=== PATIENT | female | born 1965 | race African-American/Black ===

== ENCOUNTER 2017-05-06 16:17 | Emergency (ER) | payer OTHER ==
[~2017-05-06] VITALS: Ht 167.6 cm; Wt 65.0 kg
[~2017-05-06 16:17] MED LIST: ADVITAB3 PO; CALC600T25; CETI10CA3; MULTTAB67 PO; OMEG100010
[2017-05-06 16:21] VITALS: BP 108/60; PULSE 89; RESP 24; TEMP 97.6; O2SAT 95
[2017-05-06] MEDS ORDERED: ORPHENADRINE INJ 60 MG/2 ML AMP IM ONE (16:45)
[2017-05-06] MEDS ORDERED: KETOROLAC TROMETHAMINE 60 MG/2 ML (IM) VIAL IM ONE (16:45)
[2017-05-06] MEDS ORDERED: DEXAMETHASONE SOD PHOS 4 MG/ML VIAL IM ONE (16:45)
--- NOTE | 2017-05-06 16:51 | PD ---
HPI Chief Complaint: Back/ Neck Pain or Injury Time Seen by Provider: 16:24 Travel History International Travel<30 days: No Contact w/Intl Traveler<30days: No Traveled to known affect area: No History of Present Illness HPI 51-year-old female with history of chronic low back pain presents to the emergency department for evaluation of worsening low back pain. She has had issues with low back pain since approximately 2005. She saw Dr. Tovar in December of this year. She was referred to rehabilitation, physical therapy. However, she did not finish it due to issues with cost. She has not followed back up with him. Patient is taking Lortab and Soma as needed for pain that was prescribed to her back in December by her primary care physician. Patient reports laying on her side does help with the pain. She has taken 2 Lortabs and 2 Soma today without improvement. Patient does state that she was on prednisone in the past which did help. Otherwise, she states that nothing has helped her back pain. She denies no recent injury. No fevers or chills. No saddle anesthesias. No numbness or tingling. No loss of bowel or bladder control. She reports no other medical problems and takes no other prescribed medications. I was able to view Dr. Tovar's note from December. According to his note, she has severe L3 to 4 degenerative disc disease with disc protrusion and facet arthropathy with overall all moderate foraminal stenosis and mild spinal stenosis. If rehabilitation was not to work, he did instruct her to follow-up for possible surgical management. However, she did not complete rehabilitation and did not follow back up with him. FORMERLY [facility] Social History Alcohol Use: No Tobacco Use: No Substance Use: No Allergies-Medications (Allergen,Severity, Reaction): Coded Allergies: nifedipine (Unverified Allergy, Unknown, 05/06/17) Reported Meds & Prescriptions Reported Meds & Active Scripts Active Reported Naprosyn (Naproxen) 500 Mg Tab 500 Mg PO BID PRN Omeprazole 20 Mg Tab 20 Mg PO DAILY Soma (Carisoprodol) 350 Mg Tab 350 Mg PO TID PRN [place] 3 1000 mg ([place]-3 Fatty Acids) 1 Cap Cap Calcium (Calcium Carbonate) 600 Mg Tab Multiple Vitamin 1 Tab 1 Tab PO DAILY Zyrtec (Cetirizine HCl) 10 Mg Capsule Review of Systems Except as stated in HPI: all other systems reviewed are Neg Physical Exam Narrative GENERAL: Well-nourished, well-developed female patient, ambulatory. Afebrile. SKIN: Focused skin assessment warm/dry. HEAD: Normocephalic. Atraumatic. EYES: No scleral icterus. No injection or drainage. NECK: Supple, trachea midline. No JVD or lymphadenopathy. CARDIOVASCULAR: Regular rate and rhythm without murmurs, gallops, or rubs. RESPIRATORY: Breath sounds equal bilaterally. No accessory muscle use. Lungs sounds clear to auscultation. GASTROINTESTINAL: Abdomen soft, non-tender, nondistended. MUSCULOSKELETAL: No cyanosis, or edema. Bilateral upper and lower extremity strength 5/5. All extremities are neurovascularly intact. BACK: No obvious deformity. No CVA tenderness. Patient has tenderness over lower midline lumbar spine. Data Data Last Documented VS Vital Signs Date Time Temp Pulse Resp B/P (MAP) Pulse Ox O2 Delivery O2 Flow Rate FiO2 05/06/17 16:21 97.6 89 24 108/60 (76) 95 Room Air Orders Orders Ketorolac Inj (Toradol Inj) (05/06/17 16:45) Orphenadrine Inj (Norflex Inj) (05/06/17 16:45) Dexamethasone Inj (Decadron Inj) (05/06/17 16:45) MDM Medical Decision Making Medical Screen Exam Complete: Yes Emergency Medical Condition: Yes Medical Record Reviewed: Yes Differential Diagnosis Acute exacerbation of chronic back pain versus sciatica versus herniated disc Narrative Course 51-year-old female presents to the emergency department for evaluation of low back pain that is chronic in nature. She was supposed to do rehabilitation and follow up with Dr. Tovar, but has been able to do so. She has taken 2 Lortab and 2 Soma today without improvement. Patient is given Toradol 60 mg IM, Norflex 60 mg IM, dexamethasone 8 mg IM. Upon re-assessment, patient states pain is much better and more tolerable. She states it is not completely gone, but is tolerable at this time. Patient will be discharged home with a Medrol Dosepak. She is instructed to follow-up with Dr. Tovar. She will be given a few days off work. She is instructed to return here for any acute worsening of symptoms. She verbalizes agreement and understanding. The patient was discharged in stable condition with instructions, including return instructions and follow up instructions. Diagnosis Primary Impression: Lumbar degenerative disc disease Referrals: Walter Tovar MD 2 days Patient Instructions: Chronic Back Pain (ED), General Instructions Departure Forms: Tests/Procedures, Work Release Enter return to work date: May 10, 2017 Additional Instructions: Continue hydrocodone and Soma as prescribed by your primary care physician as needed for pain. Take Medrol Dosepak as directed. Start this tomorrow. Follow-up with Dr. Tovar. Return to the emergency department for any acute worsening of symptoms. Med/Other Pt SpecificInfo: Prescription(s) given Scripts Methylprednisolone Dosepak (Medrol Dosepak) 4 Mg Dspk 4 MG PO DIRECTED, #1 DSPK 0 Refills Per Pharmacist direction Prov: Brandie Mayes 05/06/17 Disposition: 01 DISCHARGE HOME Condition: Stable Brandie Mayes May 06, 2017 16:51
[2017-05-06] MEDS ORDERED: SOMA350T PO (17:03)
[2017-05-06] MEDS ORDERED: NAPR500 PO (17:03)
[2017-05-06] MEDS ORDERED: OMEP20TA PO (17:03)
[2017-05-06] MEDS ORDERED: MEDR4PAK PO (18:17)
[2017-05-16] MEDS ORDERED: HYDR-3533 PO (14:59)
[2017-05-16] MEDS ORDERED: SOMA350T PO (14:59)
== END 2017-05-06 18:45 | disposition home or self-care (01) ==
LOC: NEPD 16:17
DX: M51.36 Other intervertebral disc degeneration, lumbar region (principal); Z79.899 Other long term (current) drug therapy; Z88.8 Allergy status to other drugs, medicaments and biological substances
CPT/HCPCS: 96372; 99284; J1100; J1885; J2360

== ENCOUNTER → 2017-08-07 | Outpatient (CLI) | payer OTHER ==
[~2017-08-07] MED LIST changes: -ADVITAB3 PO; -CALC600T25; +CALC600T5; +IBUP200T47 PO; +NAPR500 PO; +NORC5TAB PO; +OMEP20TA93 PO; +SOMA350T PO; +WALKER WHEELS/F1 MIS
== END ==
LOC: CPRE 12:45
PROVIDERS: ATTEND Neurological Surgery
DX: Z01.812 Encounter for preprocedural laboratory examination (principal); M51.16 Intervertebral disc disorders with radiculopathy, lumbar region; M51.36 Other intervertebral disc degeneration, lumbar region
CPT/HCPCS: 87640; 87641

== ENCOUNTER 2017-08-09 06:02 | Inpatient (IN) | payer OTHER ==
--- NOTE | 2017-08-08 18:21 | MH ---
cc: TONY MONTEIRO M.D., ROHIT K. M.D. DATE OF ADMISSION 08/09/2017 ADMISSION DIAGNOSIS Lumbar degenerative disk disease. HISTORY OF PRESENT ILLNESS This is a 51-year-old female who presented to us initially in December 2016 for evaluation of low back pain. At that time she said she has had back problems since 2005 and has had periodic flare-ups that would last 1-2 days and then resolve. She states that on December 18, 2016 she had exacerbation of her back that extended across her low back and the exacerbation never improved as they had previously done. She also complained of numbness in the posterior right buttock and thigh and calf and into the big toe intermittently. She denied any weakness. She has no bowel or bladder incontinence. She denies any left leg symptoms. The patient has had such severe pain that at times she has had to go to Urgent Care or the emergency room. She has seen her primary care physician who was also tried prednisone and she could not tolerate the side effects. She states that lying down helps with her pain but she has pain all the time. Her back pain will sometimes extend into the right buttocks. She has had a lumbar epidural steroid injection in the past which did not help. She has also tried physical therapy in the past which has not helped. She has also been seen for follow-up evaluations on 05/16/2017 and 07/31/2017 and the patient states that she has tried conservative treatment route and she is miserable with her level of discomfort and she is requesting that we proceed with surgical intervention. She currently rates her back pain as 4/10. PAST MEDICAL HISTORY Significant for: 1. Hypertension. 2. Osteoarthritis. 3. Cataracts. PAST SURGICAL HISTORY 1. She had a in 1986. 2. Another in 2000. 3. Hysterectomy in 2002. 4. Adrenalectomy in 2012. CURRENT MEDICATIONS She takes: 1. Advil 400 milligrams p.r.n. This was placed on hold prior to surgical intervention. 2. Zyrtec 5 mg daily. 3. Multivitamin daily. 4. Calcium 600 mg daily. 5. [place] 3 fish oil daily. 6. Soma 350 mg p.r.n. 7. Hydrocodone 5/325 p.r.n. ALLERGIES SHE IS ALLERGIC TO PROCARDIA. FAMILY HISTORY Father is alive at 75 years old, has diabetes and a pacemaker. Her mother is at 43 years old of suicide. She has a sister who is alive 46 years old with lung problems. SOCIAL HISTORY She is an financial planning assistant. She is . She has four children. She does not smoke. She drinks alcohol on a rare occasion two to three drinks per year. REVIEW OF SYSTEMS CONSTITUTIONAL: She denies any fever or chills. EARS, NOSE, AND THROAT: No pharyngitis or exudate. Positive for sinus drainage. nose. CARDIOVASCULAR: No chest pain, palpitations. RESPIRATORY: No cough or shortness of breath. GENITOURINARY: No dysuria or hematuria. MUSCULOSKELETAL: Positive for low back pain and neck pain. NEUROLOGICAL: No difficulty with speech or memory. INTEGUMENT: No rashes or pruritus. NEUROLOGIC: No difficulty with speech or memory. GASTROINTESTINAL: No nausea or vomiting, abdominal pain. PSYCHIATRIC: Mild anxiety. No depression. ENDOCRINE: No polyuria. HEMATOLOGIC: No bruising or bleeding tendencies. PHYSICAL EXAMINATION HEAD: Normocephalic, atraumatic. NECK: Supple. No carotid bruits heard on auscultation. LUNGS: Clear to auscultation bilaterally. HEART: Regular rate and rhythm. Normal S1-S2. ABDOMEN: Soft and nontender. Positive bowel sounds. SKIN: Reveals no cyanosis or erythema. MUSCULOSKELETAL: She has 5/5 strength in the lower extremities. She ambulates without any assistive device. NEUROLOGIC: She is awake, alert, oriented. Cranial nerves II through XII appear grossly intact. Speech is fluent. Comprehension is good. Reflexes 2+ in the lower extremities: IMAGING Data reviewed, MRI of the lumbar spine reveals advanced L3 / L4 disk degeneration with disk height collapse along with extensive endplate changes and disk protrusion with facet hypertrophy and foraminal stenosis. PLAN We have discussed the treatment options with the patient and she is requesting that we proceed with surgical intervention. We have therefore recommended an L3-L4 transforaminal interbody fusion with cage and pedicle screw fixation. The procedure as well as the risks, benefits, alternative and recovery time were explained in great detail with the patient. We have discussed the risks involved with surgery to include but not limited to bleeding, infection, muscle weakness, voice hoarseness, difficulty swallowing, heart attack, stroke, blood clots, non fusion, among others. Patient states that she is a [employer] and cannot have any blood transfusions and is willing to accept the risks of possible bleeding associated with surgery. She has related that she is open to the use of cell saver if needed. The patient is willing to accept the risk of surgery and is requesting that we proceed and she was therefore scheduled accordingly. DICTATED BY: Kaz Pryor PA-C MD MEGAN Machado/PARKER /5:02 PM /5:35 PM
[~2017-08-09] VITALS: Ht 167.6 cm; Wt 71.7 kg
[~2017-08-09 06:02] MED LIST changes: -IBUP200T47 PO; -OMEP20TA93 PO; -WALKER WHEELS/F1 MIS
[2017-08-09] MEDS ORDERED: CHLORHEXIDINE GLUCONATE 2 % 1 PACK (2 CLOTHS) TOPICAL PRN (06:30)
[2017-08-09] MEDS ORDERED: LACTATED RINGER'S 1000 ML IV PRN (06:30)
[2017-08-09] MEDS ORDERED: SODIUM CHLORID 0.9% 500 ML IV PRN (06:30)
[2017-08-09] MEDS ORDERED: POVIDONE IODINE 5% (ANTISEPSIS KIT) 4 APPLICATIONS EACH NARE PRN (06:30)
[2017-08-09] MEDS ORDERED: VANCOMYCIN 1 GM/200 ML PREMIX ON-CALL IV SCH (06:30)
[2017-08-09] MEDS ORDERED: METOPROLOL TARTRATE 25 MG TAB PO PRN (06:30)
[2017-08-09] MEDS ORDERED: SODIUM CHLOR 0.9% 1000 ML INJ 1,000 ML IV SCH (06:30)
[2017-08-09] MEDS ORDERED: VANCOMYCIN HCL 1000 MG VIAL ONE ×3 (06:43→07:23)
[2017-08-09] MEDS ORDERED: SODIUM CHLOR 0.9% 250 ML INJ 250 ML ONE (06:44)
[2017-08-09] MEDS ORDERED: IBUP200T47 PO (06:56)
[2017-08-09] MEDS ORDERED: THROMBIN (TOPICAL) 5,000 UNIT VIAL ONE (07:23)
[2017-08-09] MEDS ORDERED: GELFOAM SIZE 100 ONE (07:23)
[2017-08-09] MEDS ORDERED: BUPIVACAINE/EPINEPHRINE 0.5% PF 30 ML VIAL ONE (07:26)
[2017-08-09] MEDS ORDERED: HEPARIN SODIUM - SQ 10,000 UNITS/ML VIAL ONE (07:35)
[2017-08-09] MEDS ORDERED: NEOSTIGMINE 5 MG/5 ML SYRINGE IV PUSH ONE (12:00)
[2017-08-09] MEDS ORDERED: PHENYLEPH/NS 1000 MCG/10 ML SYR IV ONE (12:00)
[2017-08-09] MEDS ORDERED: ROCURONIUM INJ 50 MG/5 ML SYRINGE IV PUSH ONE (12:00)
[2017-08-09] MEDS ORDERED: PROPOFOL 200 MG/20 ML AMP IV ONE (12:00)
[2017-08-09] MEDS ORDERED: NORMOSOL R INJ 2,000 ML IV ONE (12:00)
[2017-08-09] MEDS ORDERED: GLYCOPYRROLATE 1 MG/5 ML SYRINGE IV PUSH ONE (12:00)
[2017-08-09] MEDS ORDERED: LIDOCAINE HCL 1% PF 5 ML SYRINGE OTHER ONE (12:00)
[2017-08-09] MEDS ORDERED: ONDANSETRON HCL 4 MG/2 ML VIAL IV ONE (12:00)
[2017-08-09] MEDS ORDERED: ACETAMINOPHEN 1000 MG/100 ML 100 ML IV ONE (12:07)
[2017-08-09] MEDS ORDERED: DO NOT ADM ANY ANTICOAGULANT DRUGS PRN (12:36)
[2017-08-09] MEDS: NS + KCL 20 MEQ INJ 1,000 ML IV SCH (12:37)
[2017-08-09] MEDS ORDERED: ONDANSETRON HCL 4 MG/2 ML VIAL IV PUSH PRN (12:45)
[2017-08-09] MEDS ORDERED: SODIUM CHLORIDE 0.9% FLUSH 10 ML FLUSH IV FLUSH PRN (12:45)
[2017-08-09] MEDS ORDERED: SENNOSIDES 8.6 MG TAB PO PRN (12:45)
[2017-08-09] MEDS ORDERED: MENTHOL LOZENGE BUCCAL PRN (12:45)
[2017-08-09] MEDS ORDERED: ZOLPIDEM TARTRATE 5 MG TAB PO PRN (12:45)
[2017-08-09] MEDS ORDERED: ACETAMINOPHEN 325 MG TAB PO PRN (12:45)
[2017-08-09] MEDS ORDERED: LACTULOSE SYRUP 20 GM/30 ML CUP PO PRN (12:45)
[2017-08-09] MEDS ORDERED: RESP: ALBUTEROL 2.5 MG/3 ML NEB (PRN) NEB (12:45)
[2017-08-09] MEDS ORDERED: CALCIUM GLUCONATE INJ 1 GM in SODIUM CHLORIDE 0.9% INJ 100 ML IV PRN (12:45)
[2017-08-09] MEDS ORDERED: cloNIDine HCL 0.1 MG TAB PO PRN (12:45)
[2017-08-09] MEDS ORDERED: POTASSIUM CHLOR 20 MEQ PREMIX 100 ML IV PRN (12:45)
[2017-08-09] MEDS ORDERED: MAGNESIUM HYDROXIDE SUSP 30 ML CUP PO PRN (12:45)
[2017-08-09] MEDS ORDERED: PROMETHAZINE INJ 25 MG/ML VIAL IM PRN (12:45)
[2017-08-09] MEDS ORDERED: ACETAMINOPHEN/HYDROcodone 325 MG/10 MG TAB PO PRN (12:45)
[2017-08-09] MEDS ORDERED: ALUMINUM/MAGNESIUM/SIMETH 30 ML CUP PO PRN (12:45)
[2017-08-09] MEDS ORDERED: BISACODYL 10 MG SUPP RECTAL PRN (12:45)
--- NOTE | 2017-08-09 12:46 | RADRPT ---
EXAM DATE/TIME: 08/09/2017 08:56 [facility] COMPARISON: No previous studies available for comparison. INDICATIONS : Post-op L3-L4 posterior lumbar fusion. MEDICAL HISTORY : None. SURGICAL HISTORY : None. ENCOUNTER: Initial ACUITY: 1 day PAIN SCORE: Non-responsive. LOCATION: Lumbar spine FINDINGS: Surgical screws traverse the bodies of L3 and L4 on the right with posterior stabilization hardware i n place in addition to fusion at this level. CONCLUSION: Intact to immediate postsurgical changes. Bubba Calderon MD on August 09, 2017 at 12:43 Board Certified Radiologist. This report was verified electronically.
--- NOTE | 2017-08-09 12:53 | PD.OP ---
Verona Wilson MD Operative Report Date of Surgery: Aug 09, 2017 Preoperative Diagnosis: Intractable low back pain with radiculopathy; L3-4 severe degenerative disc disease with pars defect and spondylolisthesis with associated disc protrusion and facet hypertrophy with foraminal stenosis Postoperative Diagnosis: Same Procedure: Lumbar L3-4 transforaminal interbody fusion; L3-4 pedicle screw fixation; L3-4 interbody cage placement; microsurgical technique Anesthesia: Gen. endotracheal by Richard guillen Surgeon: Walter Tovar M.D. Scientific Programmer Analyst(s): Bernice Reddy Operation and Findings: Following initiation of general endotracheal anesthesia, the patient had a Degroot catheter placed along with sequential compression devices. A gram of vancomycin was administered intravenously and she was turned in a prone position on a Aristeo frame, on a Rob table, and all pressure points adequately padded. The lumbosacral region was then prepped with Chloraprep and sterilely draped with Ioban along the usual sterile draping. A right paraspinal skin incision was then made extending from the L3-4 level after infiltrating the skin with 0.5% Marcaine with epinephrine solution extending down through the fascia. The muscle fibers were split using avascular fatty plane and detached from the underlying facets, transverse process and lateral portion of lamina on the right side and a self-retaining retractor used for exposure. Intraoperative fluoroscopy was also used for level of confirmation along with microscope magnification for further dissection. There was significant facet and ligamentum flavum hypertrophy noted as well as a pars defect with surrounding inflammatory tissue. Right L3-4 facet was resected with a drill bit along with the lamina and there was severe foraminal and lateral recess stenosis from hypertrophied ligamentum flavum and facet along with the spondylolisthesis. There was significant disc height collapse along with disc protrusion also leading to the foraminal stenosis. Epidural hemostasis was achieved with bipolar cautery and Gelfoam with thrombin. Subsequently entered into the disc space at the L3-4 level with a #15 blade and ace were used for discectomy. I then placed PEEK cage packed with local autograft bone and more local autograft bone was packed adjacent to the cage in interspace for added interbody fusion. With placement of the cage, I was able to distract the interspace and opened up the foramen further bilaterally. Subsequently in order to facilitate the fusion and provide stabilization, pedicle screw fixation was undertaken using [place] spine screws on entry point at the right L3-4 levels at the junction of the transverse process and facet. Subsequently using AP and lateral fluoroscopy tap and screw placement. The screws were then connected with a ilir and locked in place with caps. The construct appeared very secure at this point. The area was then copiously irrigated with Vancomycin solution and powder. The retractors were removed and the bipolar cautery used for hemostasis. The muscle fascia was then approximated using 2-0 Vicryl interrupted stitches and then 3-0 Vicryl subcuticular stitches also placed in interrupted fashion. The final skin closure was completed with Mastisol and Steri-Strips. A sterile dressing was then applied. The patient then turned in supine position, extubated and taken to recovery room. There were no intraoperative complications. All sponge and needle counts were correct at the end of procedure. Estimated blood loss about 50 ml. Walter Tovar MD Aug 09, 2017 12:53
[2017-08-09] MEDS ORDERED: *MEPERIDINE 25 MG INJ VIAL PERIprocedural Use ONLY ONE (13:02)
[2017-08-09] MEDS ORDERED: *ONDANSETRON 4 MG VIAL PERIprocedural Use ONLY ONE (13:04)
[2017-08-09] MEDS ORDERED: *PROMETHAZINE 25 MG/ML VIAL PERIprocedural use ONLY ONE (13:19)
[2017-08-09 13:23] LABS: AUTOMATED NEUTROPHIL # 1.9 TH/MM3 (1.8-7.7); BASOPHIL % 0.8 % (0.0-2.0); EOSINOPHIL # 0.1 TH/MM3 (0-0.4); EOSINOPHIL % 3.5 % (0.0-4.0); HEMATOCRIT 36.7 % (35.0-46.0); HEMOGLOBIN 12.6 GM/DL (11.6-15.3); LYMPH % 37.1 % (9.0-44.0); LYMPHOCYTE # 1.4 TH/MM3 (1.0-4.8); MEAN CELL VOLUME 94.7 FL (80.0-100.0); MEAN CORPUSCULAR HEMOGLOBIN 32.5 PG (27.0-34.0); MEAN CORPUSCULAR HGB CONC 34.3 % (32.0-36.0); MEAN PLATELET VOLUME 10.7 FL (7.0-11.0); MONO % 10.1 % (0.0-8.0); MONOCYTE # 0.4 TH/MM3 (0-0.9); NEUT % 48.5 % (16.0-70.0); PLATELET COUNT 117 TH/MM3 (150-450); RED BLOOD COUNT 3.87 MIL/MM3 (4.00-5.30); RED CELL DISTRIBUTION WIDTH 11.9 % (11.6-17.2); WHITE BLOOD COUNT 3.8 TH/MM3 (4.0-11.0)
[2017-08-09 13:58] LABS: BICARBONATE 27.8 MEQ/L (21.0-32.0); CALCIUM 7.3 MG/DL (8.5-10.1); CREATININE 0.81 MG/DL (0.50-1.00); MAGNESIUM 2.2 MG/DL (1.5-2.5)
[2017-08-09] MEDS ORDERED: *morphine SULFATE 10 MG/ML PERIprocedure ONLY ONE (14:02)
--- NOTE | 2017-08-09 14:20 | RADRPT ---
EXAM DATE/TIME: 08/09/2017 08:56 [facility] COMPARISON: No previous studies available for comparison. INDICATIONS : L3-L4 posterior lumbar fusion. Level localization. MEDICAL HISTORY : None. SURGICAL HISTORY : None. ENCOUNTER: Initial ACUITY: 1 day PAIN SCORE: Non-responsive. LOCATION: Lumbar spine. FINDINGS: A single magnified C-arm spot view is a lateral projection of the lower lumbar spine. A dorsal skin r etractor with metallic probe are observed with the metallic probe projecting towards the pedicles of the L4 vertebra near its more superior aspect. Anterior osteophyte production and disc space narrowin g is noted at L3-L4. CONCLUSION: Limited image as detailed above. Flavio Savage Jr., MD on August 09, 2017 at 14:17 Board Certified Radiologist. This report was verified electronically.
[2017-08-09 14:27] LABS: TOTAL PROTEIN 5.8 GM/DL (6.4-8.2)
[2017-08-09] MEDS: CARISOPRODOL 350 MG TAB PO SCH ×2 (14:56→22:39)
[2017-08-09] MEDS ORDERED: MAGNESIUM SULFATE INJ 2 GM in SODIUM CHLORIDE 0.9% INJ 100 ML IV PRN (15:00)
[2017-08-09] MEDS: ACETAMINOPHEN/HYDROcodone 325 MG/10 MG TAB PO SCH ×3 (15:41→22:40)
[2017-08-09 16:00] VITALS: BP 98/69; PULSE 60; RESP 18; TEMP 95.6; O2SAT 98
[2017-08-09] MEDS: MORPHINE SULFATE 4 MG/ML INJ IV PUSH PRN ×3 (16:41→23:44)
[2017-08-09 20:30] VITALS: BP 92/58; PULSE 67; RESP 16; TEMP 96.9; O2SAT 96
[2017-08-09] MEDS: SODIUM CHLORIDE 0.9% FLUSH 10 ML FLUSH IV FLUSH SCH (21:00)
[2017-08-09] MEDS: DOCUSATE SODIUM 50 MG/SENNA 8.6 MG TAB PO SCH (22:40)
[2017-08-10] VITALS (8 sets, daily range): BP systolic 88–97; BP diastolic 59–67; PULSE 68–101; RESP 16–18; TEMP 96.7–99.7; O2SAT 93–97
[2017-08-10] MEDS: NS + KCL 20 MEQ INJ 1,000 ML IV SCH ×3 (00:33→14:00)
[2017-08-10] MEDS: ACETAMINOPHEN/HYDROcodone 325 MG/10 MG TAB PO SCH ×5 (03:15→22:31)
[2017-08-10] MEDS: CARISOPRODOL 350 MG TAB PO SCH ×3 (06:07→22:32)
[2017-08-10] MEDS: MORPHINE SULFATE 4 MG/ML INJ IV PUSH PRN ×2 (06:19→13:37)
[2017-08-10] MEDS: DOCUSATE SODIUM 50 MG/SENNA 8.6 MG TAB PO SCH ×2 (08:15→22:32)
[2017-08-10] MEDS: MULTIVITAMIN TAB PO SCH (08:15)
[2017-08-10] MEDS: PANTOPRAZOLE SOD 40 MG DELAYED RELEASE TAB PO SCH (08:16)
[2017-08-10] MEDS: SODIUM CHLORIDE 0.9% FLUSH 10 ML FLUSH IV FLUSH SCH ×2 (08:16→22:31)
[2017-08-10] MEDS: CETIRIZINE HCL 10 MG TAB PO SCH (08:18)
--- NOTE | 2017-08-10 09:49 | HHI.NSPN ---
(Kaz Pryor) History Chief Complaint: Incisional back pain. (Kaz Pryor) Interval History 08/10/17: Patient says post L4/L5 interbody fusion with cage and pedicle screw fixation on 08/09/17. She complains of incisional pain but controlled with pain medication. She denies any radiculopathy or paresthesias in the lower extremities. She also complains of lumbar paraspinal muscle spasms and pain. She states that she is taking the Flexeril for the spasms. She overall is feeling very fatigued. (Kaz Pryor) Review of Systems General: Negative for: fever, chills, insomnia Respiratory: Negative for: shortness of breath, cough, sputum Cardiovascular: Negative for: chest pain Gastrointestinal: Negative for: nausea, vomitting, diarrhea, constipation ( Kaz Pryor) Exam Results Vital Signs Date Time Temp Pulse Resp B/P (MAP) Pulse Ox O2 Delivery O2 Flow Rate FiO2 08/10/17 08:44 16 08/10/17 07:36 99.7 82 97/62 (74) 94 08/09/17 14:00 Room Air 08/09/17 13:15 3 Intake and Output 08/10/17 08/10/17 08/11/17 08:00 16:00 00:00 Intake Total 240 ml Output Total 850 ml Balance -610 ml (Kaz Pryor) Physical Examination Resp: CTA bilaterally Heart: NSR no murmurs Abd: Soft positive bs Skin: No cyanosis or erythema. RN changed bandage this morning reportedly clean and dry. Muscle: Pt moves LEs with good strength 5/5 in LEs. Neuro: Pt awake and alert. Sensation intact to light touch in the lower extremities. Speech fluent, branches good. (Kaz Pryor) Lab, Micro, Other Results Last Impressions Lumbar Spine X-Ray 08/09/17 0000 Signed Impressions: Service Date/Time: July 08:56 - CONCLUSION: Limited image as detailed above. Flavio Savage Jr., MD Laboratory Tests Test 08/09/17 13:10 White Blood Count 3.8 TH/MM3 Red Blood Count 3.87 MIL/MM3 Hemoglobin 12.6 GM/DL Hematocrit 36.7 % Mean Corpuscular Volume 94.7 FL Mean Corpuscular Hemoglobin 32.5 PG Mean Corpuscular Hemoglobin Concent 34.3 % Red Cell Distribution Width 11.9 % Platelet Count 117 TH/MM3 Mean Platelet Volume 10.7 FL Neutrophils (%) (Auto) 48.5 % Lymphocytes (%) (Auto) 37.1 % Monocytes (%) (Auto) 10.1 % Eosinophils (%) (Auto) 3.5 % Basophils (%) (Auto) 0.8 % Neutrophils # (Auto) 1.9 TH/MM3 Lymphocytes # (Auto) 1.4 TH/MM3 Monocytes # (Auto) 0.4 TH/MM3 Eosinophils # (Auto) 0.1 TH/MM3 Basophils # (Auto) 0.0 TH/MM3 CBC Comment DIFF FINAL Differential Comment Blood Urea Nitrogen 11 MG/DL Creatinine 0.81 MG/DL Random Glucose 90 MG/DL Total Protein 5.8 GM/DL Calcium Level 7.3 MG/DL Magnesium Level 2.2 MG/DL Sodium Level 143 MEQ/L Potassium Level 3.7 MEQ/L Chloride Level 111 MEQ/L Carbon Dioxide Level 27.8 MEQ/L Anion Gap 4 MEQ/L Estimat Glomerular Filtration Rate 91 ML/MIN Protein Corrected Calcium 8.0 MG/DL (Kaz Pryor) Medical Decision Making Impression and Plan A: 51 y/o FM status post L4/L5 interbody fusion with cages and pedicle screw fixation. P: Degroot removed this morning. PT evaluation today Continue with pain control (Kaz Pryor) Attending Statement The exam, history, and the medical decision-making described in the above note were completed with the assistance of the mid-level provider. I reviewed and agree with the findings presented. I attest that I had a [id number] encounter with the patient on the same day, and personally performed and documented my assessment and findings in the medical record. (Walter Tovar MD) Kaz Pryor Aug 10, 2017 09:49 Walter Tovar MD Aug 10, 2017 16:37
[2017-08-10] MEDS ORDERED: KETOROLAC TROMETHAMINE 60 MG/2 ML (IM) VIAL IM ONE (14:00)
[2017-08-11] VITALS (9 sets, daily range): BP systolic 92–111; BP diastolic 54–80; PULSE 92–107; RESP 16–18; TEMP 98.2–99.7; O2SAT 96–100
[2017-08-11] MEDS: ACETAMINOPHEN/HYDROcodone 325 MG/10 MG TAB PO PRN ×2 (02:14→16:30)
[2017-08-11] MEDS: ACETAMINOPHEN/HYDROcodone 325 MG/10 MG TAB PO SCH ×3 (03:00→11:30)
[2017-08-11] MEDS: CARISOPRODOL 350 MG TAB PO SCH ×3 (06:17→20:29)
[2017-08-11] MEDS: CETIRIZINE HCL 10 MG TAB PO SCH (09:00)
[2017-08-11] MEDS: DOCUSATE SODIUM 50 MG/SENNA 8.6 MG TAB PO SCH ×2 (09:06→20:28)
[2017-08-11] MEDS: SODIUM CHLORIDE 0.9% FLUSH 10 ML FLUSH IV FLUSH SCH ×2 (09:06→20:28)
[2017-08-11] MEDS: PANTOPRAZOLE SOD 40 MG DELAYED RELEASE TAB PO SCH (09:06)
[2017-08-11] MEDS: MULTIVITAMIN TAB PO SCH (09:06)
[2017-08-11] MEDS: NS + KCL 20 MEQ INJ 1,000 ML IV SCH ×3 (09:14→19:22)
--- NOTE | 2017-08-11 10:00 | HHI.NSPN ---
History Chief Complaint: Incisional back pain. Interval History 08/10/17: Patient says post L4/L5 interbody fusion with cage and pedicle screw fixation on 08/09/17. She complains of incisional pain but controlled with pain medication. She denies any radiculopathy or paresthesias in the lower extremities. She also complains of lumbar paraspinal muscle spasms and pain. She states that she is taking the Flexeril for the spasms. She overall is feeling very fatigued. 08/11/17: Pt awake and alert. Complains of incisional pain and some pain radiating into the right groin area. No radiculopathy in LEs. Pt ambulating short distances. Review of Systems General: Negative for: fever, chills, insomnia Respiratory: Negative for: shortness of breath, cough, sputum Cardiovascular: Negative for: chest pain Gastrointestinal: Negative for: nausea, vomitting, diarrhea, constipation Exam Results Vital Signs Date Time Temp Pulse Resp B/P (MAP) Pulse Ox O2 Delivery O2 Flow Rate FiO2 08/11/17 07:44 99.2 105 18 102/73 (83) 97 08/10/17 20:07 21 08/09/17 14:00 Room Air 08/09/17 13:15 3 Intake and Output 08/11/17 08/11/17 08/12/17 08:00 16:00 00:00 Intake Total 240 ml Balance 240 ml Physical Examination Resp: CTA bilaterally Heart: NSR no murmurs Abd: Soft positive bs Skin: No cyanosis or erythema. RN changed bandage this morning reportedly clean and dry. Muscle: Pt moves LEs with good strength 5/5 in LEs. Pt ambulating only short distance to bathroom. Neuro: Pt awake and alert. Sensation intact to light touch in the lower extremities. Speech fluent, branches good. Lab, Micro, Other Results Last Impressions Lumbar Spine X-Ray 08/09/17 0000 Signed Impressions: Service Date/Time: July 08:56 - CONCLUSION: Limited image as detailed above. Flavio Savage Jr., MD Medical Decision Making Impression and Plan A: 51 y/o FM status post L4/L5 interbody fusion with cages and pedicle screw fixation. P: Continue with PT and try to increase distance ambulated. Continue with pain control Possibly discharge home tomorrow. Will order [facility]/Home PT and walker. Kaz Pryor Aug 11, 2017 10:00 am
[2017-08-11] MEDS ORDERED: WALKER WHEELS/F1 MIS (10:01)
--- NOTE | 2017-08-11 10:03 | HHI.FF ---
Face to Face Verification Diagnosis: (1) Low back pain (2) Lumbar disc prolapse with compression radiculopathy (3) Lumbar degenerative disc disease (4) Lumbar foraminal stenosis Physical Therapy Order: Evaluate and Treat, Improve ambulation, Strength and gait training Home Health Nursing Order: Wound care and dressing changes Nursing assessment with vital signs I have seen patient Nuno Darnell on 08/11/17. My clinical findings support the need for the requested home health care services because: Deconditioned w/ increased weakness High risk of falls I certify that my clinical findings support that this patient is homebound because: Unsteady gait/balance Unable to use public transportation Kaz Pryor Aug 11, 2017 10:03 am
[2017-08-12] VITALS: BP 101/68; PULSE 98; RESP 18; TEMP 99.4; O2SAT 98
[2017-08-12 04:00] VITALS: BP 104/69; PULSE 87; RESP 18; TEMP 98.9; O2SAT 97
[2017-08-12] MEDS: CARISOPRODOL 350 MG TAB PO SCH (05:56)
[2017-08-12] MEDS: NS + KCL 20 MEQ INJ 1,000 ML IV SCH (06:00)
[2017-08-12 08:00] VITALS: BP 110/75; PULSE 93; RESP 18; TEMP 99.3; O2SAT 97
[2017-08-12] MEDS: DOCUSATE SODIUM 50 MG/SENNA 8.6 MG TAB PO SCH (09:00)
[2017-08-12] MEDS: CETIRIZINE HCL 10 MG TAB PO SCH (09:00)
[2017-08-12] MEDS: PANTOPRAZOLE SOD 40 MG DELAYED RELEASE TAB PO SCH (09:53)
[2017-08-12] MEDS: MULTIVITAMIN TAB PO SCH (09:53)
[2017-08-12] MEDS: SODIUM CHLORIDE 0.9% FLUSH 10 ML FLUSH IV FLUSH SCH (09:53)
[2017-08-12] MEDS: ACETAMINOPHEN/HYDROcodone 325 MG/10 MG TAB PO PRN (09:56)
--- NOTE | 2017-08-12 10:04 | HHI.NSPN ---
History Chief Complaint: Incisional back pain. Interval History 08/10/17: Patient says post L4/L5 interbody fusion with cage and pedicle screw fixation on 08/09/17. She complains of incisional pain but controlled with pain medication. She denies any radiculopathy or paresthesias in the lower extremities. She also complains of lumbar paraspinal muscle spasms and pain. She states that she is taking the Flexeril for the spasms. She overall is feeling very fatigued. 08/11/17: Pt awake and alert. Complains of incisional pain and some pain radiating into the right groin area. No radiculopathy in LEs. Pt ambulating short distances. 08/12/17: Patient awake and alert. She appears more comfortable today. She does complain of pain radiating into the right leg. She is able to ambulate yesterday. Review of Systems General: Negative for: fever, chills, insomnia Respiratory: Negative for: shortness of breath, cough, sputum Cardiovascular: Negative for: chest pain Gastrointestinal: Negative for: nausea, vomitting, diarrhea, constipation Exam Results Vital Signs Date Time Temp Pulse Resp B/P (MAP) Pulse Ox O2 Delivery O2 Flow Rate FiO2 08/12/17 06:35 17 08/12/17 04:00 98.9 87 104/69 (81) 97 08/11/17 21:53 Room Air 08/11/17 19:17 21 08/09/17 13:15 3 Intake and Output 08/12/17 08/12/17 08/13/17 08:00 16:00 00:00 Intake Total 480 ml Balance 480 ml Physical Examination Resp: CTA bilaterally Heart: NSR no murmurs Abd: Soft positive bs Skin: No cyanosis or erythema. RN changed bandage this morning reportedly clean and dry. Muscle: Pt moves LEs with good strength 5/5 in LEs. Pt ambulating short distances to the nursing station. Neuro: Pt awake and alert. Sensation intact to light touch in the lower extremities. Speech fluent and comprehension good. Lab, Micro, Other Results Last Impressions Lumbar Spine X-Ray 08/09/17 0000 Signed Impressions: Service Date/Time: July 08:56 - CONCLUSION: Limited image as detailed above. Flavio Savage Jr., MD Medical Decision Making Impression and Plan A: 51 y/o FM status post L4/L5 interbody fusion with cages and pedicle screw fixation. P: D/C home Discussed restrictions with kitty. Kaz Pryor Aug 12, 2017 10:04 am
== END 2017-08-12 12:12 | disposition home health service (06) | DRG 455 ==
LOC: HSDI 06:02 → N06A 14:42
PROVIDERS: ADMIT Neurological Surgery; ATTEND Neurological Surgery
PROC: 0SG00J1 Fusion of Lumbar Vertebral Joint with Synthetic Substitute, Posterior Approach, Posterior Column, Open Approach (ICD-10-PCS; 2017-08-09)
PROC: 0ST20ZZ Resection of Lumbar Vertebral Disc, Open Approach (ICD-10-PCS; 2017-08-09)
PROC: 0SG00AJ Fusion of Lumbar Vertebral Joint with Interbody Fusion Device, Posterior Approach, Anterior Column, Open Approach (ICD-10-PCS; principal; 2017-08-09 08:44)
DX: M51.16 Intervertebral disc disorders with radiculopathy, lumbar region (principal); I10 Essential (primary) hypertension; M48.061 Spinal stenosis, lumbar region without neurogenic claudication; M43.16 Spondylolisthesis, lumbar region; M19.90 Unspecified osteoarthritis, unspecified site; M62.830 Muscle spasm of back; M51.36 Other intervertebral disc degeneration, lumbar region
CPT/HCPCS: 72020; 72100; 76000; 80048; 83735; 84155; 85025; 86850; 86900; 86901; 87640; 87641; 94150; C1713; J0131; J0690; J1644; J1885; J2175; J2270; J2370; J2405; J2550; J2710; J3010; J3370; J3480; J7050